=== PATIENT | male | born 1965 | race Two or more races ===

== ENCOUNTER 2016-05-26 15:14 | Emergency (ER) | payer OTHER ==
[2016-05-26] MEDS ORDERED: OXYCODONE/ACETAMINOPHEN 5/325 MG TABLET ONE (16:20)
[2016-05-26] MEDS ORDERED: KETOROLAC TROMETHAMINE 60 MG/2 ML VIAL ONE (16:20)
== END 2016-05-26 17:14 | disposition home or self-care (01) ==
LOC: ED 15:14
DX: M54.16 Radiculopathy, lumbar region (principal); I10 Essential (primary) hypertension; J45.909 Unspecified asthma, uncomplicated; F17.210 Nicotine dependence, cigarettes, uncomplicated
CPT/HCPCS: 99283 ×2; 96372; A9270; J1885